=== PATIENT | male | born 1970 | race Caucasian/White ===

== ENCOUNTER 2022-12-23 05:59 | Emergency (ER) | payer OTHER ==
[~2022-12-23] VITALS: Ht 165.1 cm; Wt 79.4 kg
[2022-12-23] MEDS ORDERED: JANUVIA100 MG PO (06:26)
[2022-12-23] MEDS ORDERED: GLUMETZA1000 MG PO (06:26)
[2022-12-23] MEDS ORDERED: ANTARA90 MG PO (06:26)
== END 2022-12-23 07:21 | disposition home or self-care (01) ==
LOC: ER 05:59
DX: G50.0 Trigeminal neuralgia (principal)